=== PATIENT | male | born 1985 | race Caucasian/White ===

== ENCOUNTER 2021-04-24 11:44 | Emergency (ER) | payer SELFPAY ==
[~2021-04-24] VITALS: Ht 157.5 cm; Wt 80.0 kg
[2021-04-24 12:13] VITALS: BP 130/83
== END 2021-04-24 15:36 | disposition left against medical advice (07) ==
LOC: ER 13:28
DX: Z53.21 Procedure and treatment not carried out due to patient leaving prior to being seen by health care provider (principal); R10.9 Unspecified abdominal pain

== ENCOUNTER 2021-07-22 12:04 | Emergency (ER) | payer SELFPAY ==
[~2021-07-22] VITALS: Ht 162.6 cm; Wt 76.0 kg
[2021-07-22 12:08] VITALS: BP 123/81
== END 2021-07-22 15:55 | disposition left against medical advice (07) ==
LOC: ER 12:04
DX: Z53.21 Procedure and treatment not carried out due to patient leaving prior to being seen by health care provider (principal)

== ENCOUNTER 2022-10-11 12:40 | Emergency (ER) | payer SELFPAY ==
[~2022-10-11] VITALS: Ht 157.5 cm; Wt 61.0 kg
[2022-10-11 12:53] VITALS: BP 145/85
== END 2022-10-11 15:53 | disposition left against medical advice (07) ==
LOC: ER 12:40
DX: Z53.21 Procedure and treatment not carried out due to patient leaving prior to being seen by health care provider (principal)

== ENCOUNTER 2022-10-12 23:19 | Emergency (ER) | payer SELFPAY ==
[~2022-10-12] VITALS: Ht 165.1 cm; Wt 73.5 kg
[2022-10-13] MEDS ORDERED: LIDOCAINE HCL 1% 20ML VIAL (Pyxis) INJ INFIL ONE (06:00)
[2022-10-13] MEDS ORDERED: LIDOCAINE HCL 1% 20ML VIAL (Pyxis) INJ INFIL NR (07:45)
[2022-10-13] MEDS ORDERED: LIDOCAINE HCL 1% 10 MG/ML 5ML VIAL INJ NR (08:00)
[2022-10-13] MEDS ORDERED: IBUPROFEN 600MG TABLET PO ONE (08:45)
[2022-10-13] MEDS ORDERED: ACETAMINOPHEN 650MG/20.3ML UDC PO ONE (08:45)
[2022-10-13] MEDS ORDERED: FENTANYL CITRATE/PF 50MCG/ML 2ML VIAL IM ONE (09:00)
[2022-10-13] MEDS ORDERED: FENTANYL CITRATE/PF 50MCG/ML 2ML VIAL IM SCH (09:05)
[2022-10-13] MEDS ORDERED: CEPH500C2 MT (09:43)
[2022-10-13] MEDS ORDERED: DOXY100C5 MT (09:43)
[2022-10-13] MEDS ORDERED: DOXYCYCLINE HYCLATE 100MG CAPSULE PO ONE (09:45)
[2022-10-13] MEDS ORDERED: CEPHALEXIN 250MG CAPSULE PO ONE (09:45)
[2022-10-13] MEDS ORDERED: IBUP-2029 MT ×3 (09:47→09:48)
[2022-10-13 10:39] VITALS: BP 120/79
== END 2022-10-13 10:41 | disposition home or self-care (01) ==
LOC: ER 23:19
DX: L03.115 Cellulitis of right lower limb (principal)
CPT/HCPCS: 10060; 96372; 99284; J3490; Z7610